=== PATIENT | male | born 1945 | race Caucasian/White ===

== ENCOUNTER 2016-11-01 03:01 | Emergency (ER) | payer MEDICARE ==
[2016-11-01 03:08] VITALS: TEMP 98.4
[2016-11-01 03:44] LABS: Aty Lym Flag Slight; CH 32.9; CHCM 33.7; HCT 46.5 % (39.0-53.0); HGB 15.9 gm/dL (13.0-17.5); MCH 33.4 pg (25.0-35.0); MCHC 34.1 g/dL (31.0-37.0); Mean Platelet Volume 8.5; RBC 4.75 m/uL (4.30-5.90); RDW 12.5 % (11.5-15.5); WBC 4.5 k/uL (3.8-10.6); WBC (Perox) 4.54
[2016-11-01 03:49] LABS: INR 1.1 (<1.2); Prothrombin Time 11.3 sec (9.0-12.0)
[2016-11-01 03:50] LABS: Partial Thromboplastin Time 24.2 sec (22.0-30.0)
[2016-11-01 03:52] LABS: ALT 42 U/L (21-72); AST 34 U/L (17-59); Alkaline Phosphatase 95 U/L (38-126); Anion Gap 12 mmol/L; Blood Urea Nitrogen 19 mg/dL (9-20); Calcium 9.5 mg/dL (8.4-10.2); Carbon Dioxide 25 mmol/L (22-30); Chloride 108 mmol/L (98-107); Glucose 119 mg/dL (74-99); Non-African American GFR(MDRD) >60 (>60 ml/min/1.73 sqM); Potassium 3.6 mmol/L (3.5-5.1); Sodium 145 mmol/L (137-145); Total Bilirubin 1.5 mg/dL (0.2-1.3); Total Protein 6.4 g/dL (6.3-8.2)
--- NOTE | 2016-11-01 04:11 | XR ---
EXAM: XR Chest, 2 Views CLINICAL HISTORY: Reason: Pain TECHNIQUE: Frontal and lateral views of the chest. COMPARISON: Chest x-ray 11/01/14 FINDINGS: Lungs: No consolidation. Unchanged nodular densities over the lower lungs, likely nipple shadows. Pleural space: Unremarkable. No pneumothorax. Heart: Unremarkable. No cardiomegaly. Mediastinum: Unremarkable. Bones/joints: No acute findings. IMPRESSION: No acute cardiopulmonary process.
[2016-11-01 04:18] LABS: Troponin I 0.019 ng/mL (0.000-0.034)
[2016-11-01 04:20] LABS: Creatine Kinase MB 9.2 ng/mL (0.0-2.4)
[2016-11-01 04:41] LABS: Add Differential Manual Differential
[2016-11-01 04:48] LABS: Nucleated Red Blood Cells 0 /100 WBC (0-0); Total Cells Counted 100
[2016-11-01 04:52] LABS: Polychromasia Present
--- NOTE | 2016-11-01 05:17 | ED ---
Arrhythmia/Palpitations HPI - General Chief Complaint: Arrhythmia/Palpitations Stated Complaint: Arrhythmia Time Seen by Provider: 11/01/16 03:13 Source: patient Mode of arrival: ambulatory Limitations: no limitations - History of Present Illness Initial Comments: This patient is 71-year-old man who comes emergency department to be evaluated for what he is describing as a feeling of irregular heartbeat. When he describes as he indicates the upper sternal area, though when questioned he denies pain or discomfort there. The patient denies other anginal symptoms, including no dyspnea, diaphoresis, nausea or vomiting, lightheadedness or syncope. He does state that the feeling is of a skipped beat or sometimes an extra beat. Patient does state that he is in the process of moving and there has been a little bit of stress associated with this. MD Complaint: irregular heart beat Onset/Timin -: hour(s) Context: awoke with symptoms Associated Symptoms: denies other symptoms - Related Data Home Medications Medication Instructions Recorded Confirmed Aspirin 81 mg PO DAILY 10/30/14 11/07/14 Atenolol [Tenormin] 50 mg PO DAILY 10/30/14 11/07/14 Simvastatin [Zocor] 40 mg PO HS 10/30/14 11/07/14 Terazosin [Hytrin] 5 mg PO HS 10/30/14 11/07/14 Previous Rx's Medication Instructions Recorded Diazepam [Valium] 5 mg PO TID PRN #90 tab 11/09/14 Hydrocodone/Acetaminophen [Colton 1 - 2 each PO Q6HR PRN #90 tab 11/09/14 5-325] Allergies Allergy/AdvReac Type Severity Reaction Status Date / Time No Known Allergies Allergy Verified 11/01/16 03:08 Review of Systems ROS Statement: Those systems with pertinent positive or pertinent negative responses have been documented in the HPI. ROS Other: All systems not noted in ROS Statement are negative. Constitutional: Denies: fever, chills, weakness Respiratory: Denies: cough, dyspnea, wheezes Cardiovascular: Reports: as per HPI, palpitations. Denies: dyspnea on exertion , orthopnea, edema, syncope Gastrointestinal: Denies: abdominal pain, nausea, vomiting, diarrhea Genitourinary: Denies: dysuria, hematuria Musculoskeletal: Denies: back pain Skin: Denies: rash Neurological: Denies: headache, weakness, numbness, paresthesias Past Medical History Past Medical History: Hyperlipidemia, Hypertension, Prostate Disorder Additional Past Medical History / Comment(s): posterior lumbar decompression and fusion L3-4, L4-5, L5-S1. Other HX: BPH History of Any Multi-Drug Resistant Organisms: None Reported Past Surgical History: Hernia Repair, Orthopedic Surgery Additional Past Surgical History / Comment(s): 11/07/14 posterior lumbar decompression and fusion L3-4, L4-5, L5-S1. Other SX HX: lilibeth rotator cuff, lilibeth arthroscopic knee surgeries, left knee surgery, bilateral carpal tunnel surgery. Past Anesthesia/Blood Transfusion Reactions: No Reported Reaction Past Psychological History: No Psychological Hx Reported Smoking Status: Former smoker Past Alcohol Use History: Occasional Past Drug Use History: None Reported - Past Family History Father Family Medical History: Cancer Additional Family Medical History / Comment(s): Father had recurrent bladder tumors which pt is unsure if they were cancerous or pre-cancerous. General Exam Limitations: no limitations General appearance: alert, in no apparent distress Head exam: Present: atraumatic, normocephalic Eye exam: Present: normal appearance. Absent: scleral icterus, conjunctival injection Neck exam: Present: normal inspection Respiratory exam: Present: normal lung sounds bilaterally. Absent: respiratory distress, wheezes, rales, rhonchi, stridor, chest wall tenderness, accessory muscle use Cardiovascular Exam: Present: regular rate, normal rhythm, systolic murmur (. One out of 6 systolic murmur.) GI/Abdominal exam: Present: soft. Absent: distended, tenderness, guarding, rebound, rigid, mass Extremities exam: Present: normal inspection, normal capillary refill. Absent: pedal edema, calf tenderness Back exam: Present: normal inspection. Absent: CVA tenderness (R), CVA tenderness (L) Neurological exam: Present: alert Skin exam: Present: warm, dry, intact, normal color. Absent: rash Course Vital Signs 11/01/16 03:04 Temperature 98.4 F Pulse Rate 69 Respiratory 18 Rate Blood Pressure 149/72 O2 Sat by Pulse 100 Oximetry EKG Findings - EKG Comments: EKG Findings:: Possible left atrial enlargement. SC interval 158 ms. QRS duration prolonged at 138 ms. QTC 450 ms. - EKG Results: EKG: interpreted by ERMD, sinus rhythm (With occasional PVC) - Blocks, Thorp, Hypertrophy, ST Abn: AV and intraventricular conduction: right bundle branch block (fixed/ intermittent, complete/incomplete) QRS axis and voltage: left axis deviation (-30 to -90) Medical Decision Making - Medical Decision Making 71-year-old man who presents with palpitations. There is question of whether he had some associated pain but the patient continues to deny this despite the triage note. Discussed admission for further monitoring as well as serial cardiac enzymes, and the patient is declining at this point. I did discuss the risk of missing a cardiac event, including heart attack or arrhythmia. Discussed possibility of disability and resulting. 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 We discussed return parameters. - Lab Data Result diagrams: 11/01/16 03:20 11/01/16 03:20 Lab Results 11/01/16 11/01/16 11/01/16 Range/Units 03:20 03:20 03:20 WBC 4.5 (3.8-10.6) k/uL RBC 4.75 (4.30-5.90) m/uL Hgb 15.9 (13.0-17.5) gm/dL Hct 46.5 (39.0-53.0) % MCV 98.0 (80.0-100.0) fL MCH 33.4 (25.0-35.0) pg MCHC 34.1 (31.0-37.0) g/dL RDW 12.5 (11.5-15.5) % Plt Count 144 L (150-450) k/uL Neutrophils % (Manual) 47.0 % Lymphocytes % (Manual) 47.0 % Monocytes % (Manual) 4.0 % Eosinophils % (Manual) 2.0 % Neutrophils # (Manual) 2.1 (1.3-7.7) k/uL Lymphocytes # (Manual) 2.1 (1.0-4.8) k/uL Monocytes # (Manual) 0.2 (0-1.0) k/uL Eosinophils # (Manual) 0.1 (0-0.7) k/uL Nucleated RBCs 0 (0-0) /100 WBC Polychromasia Present Poikilocytosis (manual Present Anisocytosis (manual) Present PT 11.3 (9.0-12.0) sec INR 1.1 (<1.2) APTT 24.2 (22.0-30.0) sec Sodium 145 (137-145) mmol/L Potassium 3.6 (3.5-5.1) mmol/L Chloride 108 H (98-107) mmol/L Carbon Dioxide 25 (22-30) mmol/L Anion Gap 12 mmol/L BUN 19 (9-20) mg/dL Creatinine 0.70 (0.66-1.25) mg/dL Est GFR (MDRD) Af Amer >60 (>60 ml/min/1.73 sqM) Est GFR (MDRD) Non-Af >60 (>60 ml/min/1.73 sqM) Glucose 119 H (74-99) mg/dL Calcium 9.5 (8.4-10.2) mg/dL Magnesium 2.0 (1.6-2.3) mg/dL Total Bilirubin 1.5 H (0.2-1.3) mg/dL AST 34 (17-59) U/L ALT 42 (21-72) U/L Alkaline Phosphatase 95 (38-126) U/L Total Creatine Kinase (55-170) U/L CK-MB (CK-2) (0.0-2.4) ng/mL CK-MB (CK-2) Rel Index Troponin I (0.000-0.034) ng/mL Total Protein 6.4 (6.3-8.2) g/dL Albumin 4.2 (3.5-5.0) g/dL 11/01/16 Range/Units 03:20 WBC (3.8-10.6) k/uL RBC (4.30-5.90) m/uL Hgb (13.0-17.5) gm/dL Hct (39.0-53.0) % MCV (80.0-100.0) fL MCH (25.0-35.0) pg MCHC (31.0-37.0) g/dL RDW (11.5-15.5) % Plt Count (150-450) k/uL Neutrophils % (Manual) % Lymphocytes % (Manual) % Monocytes % (Manual) % Eosinophils % (Manual) % Neutrophils # (Manual) (1.3-7.7) k/uL Lymphocytes # (Manual) (1.0-4.8) k/uL Monocytes # (Manual) (0-1.0) k/uL Eosinophils # (Manual) (0-0.7) k/uL Nucleated RBCs (0-0) /100 WBC Polychromasia Poikilocytosis (manual Anisocytosis (manual) PT (9.0-12.0) sec INR (<1.2) APTT (22.0-30.0) sec Sodium (137-145) mmol/L Potassium (3.5-5.1) mmol/L Chloride (98-107) mmol/L Carbon Dioxide (22-30) mmol/L Anion Gap mmol/L BUN (9-20) mg/dL Creatinine (0.66-1.25) mg/dL Est GFR (MDRD) Af Amer (>60 ml/min/1.73 sqM) Est GFR (MDRD) Non-Af (>60 ml/min/1.73 sqM) Glucose (74-99) mg/dL Calcium (8.4-10.2) mg/dL Magnesium (1.6-2.3) mg/dL Total Bilirubin (0.2-1.3) mg/dL AST (17-59) U/L ALT (21-72) U/L Alkaline Phosphatase (38-126) U/L Total Creatine Kinase 398 H (55-170) U/L CK-MB (CK-2) 9.2 H* (0.0-2.4) ng/mL CK-MB (CK-2) Rel Index 2.3 Troponin I 0.019 (0.000-0.034) ng/mL Total Protein (6.3-8.2) g/dL Albumin (3.5-5.0) g/dL Disposition Clinical Impression: Palpitations Disposition: Left Against Medical Advice Condition: Good Instructions: Palpitations (ED) Additional Instructions: As we discussed, call your doctor to set up appropriate follow-up including cardiology consultation and stress test. Should any of the symptoms recur or any of the other symptoms that we discussed develop return immediately. Referrals: Les Delcid MD [Primary Care Provider] - 1-2 days
[2016-11-01 05:34] VITALS: RESP 16
[2016-11-01 05:36] VITALS: BP 135/78; PULSE 66
== END 2016-11-01 05:36 | disposition left against medical advice (07) ==
LOC: EC 03:01
DX: R00.2 Palpitations (principal); Z87.891 Personal history of nicotine dependence
CPT/HCPCS: 36415; 71020; 80053; 82550; 82553; 83735; 84484; 85025; 85610; 85730; 93005; 99285